=== PATIENT | male | born 1960 | race African-American/Black ===

== ENCOUNTER → 2016-12-11 | Outpatient (CLI) | payer SELFPAY ==
[~2016-12-11] MED LIST: CIPRO PO; CITRATE OF MAG300 ML PO; COLACE PO; NO MEDICATIONS; NORCO 5/325 TAB1 TAB PO; PHENERGAN25 M1 PO
--- NOTE | ~2016-12-11 | MR113 ---
[facility] A Service of [facility] & [facility] RADIOLOGY TEXT RESULTS PATIENT: FRANCIA DIAZ [facility] 64 UNIT #: [id number] AGE: [address]: JEREMY Vora APRN SEX: M ORDER DR: [id number] [facility] [address] [place], [place] [address] [id number] O MR#: [id number] Acc #: [id number] NAME: FRANCIA DIAZ : 1960 SEX: M STUDY DATE/TIME: 12/11/2016 14:48 UNIT: [facility] ROOM: STUDY DESCRIPTION: MR Lumbar Wo Contrast Attending Physician: Jeremy Marshall Aprn Referring Physician: Jeremy Marshall Aprn Ordering Physician: Jeremy Marshall Aprn [facility] This report is preliminary unless electronic signature is present. EXAM Lumbar spine MRI without HISTORY Chronic low back pain from the war 1993. No history of cancer or surgery. COMMENT MRI of the lumbar spine performed without contrast using routine 1.5T imaging technique. Plain film comparison is from 2012. Sagittal alignment is normal. Bone marrow signal intensity is normal. Conus medullaris terminates at L1 and is normal. Intervertebral disc hydration is age-appropriate. Minimal loss of disc height at L5-S1. At L1-2, no significant abnormality. At L2-3, mild bilateral facet hypertrophy. No canal or foraminal impingement. L3-4, mild facet hypertrophy. No canal or foraminal impingement. L4-5, minor concentric disc bulge mild facet degenerative change bilaterally. Mild ligamentum flavum thickening. No canal stenosis. Mild inferior foraminal narrowing left greater than right and mild mass effect on left greater than right lateral recess. L5-S1, mild left side facet degenerative change. No canal stenosis. There is a small posterior disc bulge and mild inferior foraminal narrowing on the right. IMPRESSION 1. Relatively mild lumbar degenerative changes are detailed above. No [facility] A Service of [facility] & [facility] RADIOLOGY TEXT RESULTS PATIENT: FRANCIA DIAZ LOCATION: [facility] : 64 UNIT #: [id number] AGE: [address]: JEREMY Vora, CAT[employer] OPERATOR GASOLINE SEX: M ORDER DR: lumbar canal stenosis. Please refer to the comment section above for description of mild foraminal narrowing. Dictated by... Marcia Nagy M.D. THIS IS AN ELECTRONICALLY VERIFIED REPORT Marcia Nagy M.D. at 12/12/2016 2:01 PM PEGGY/refugio TD: 12/12/2016 01:33 JOB #: [id number] [facility] REPORT COPY
== END | disposition home or self-care (01) ==
LOC: CMRI 13:35
DX: M54.5 Low back pain (principal); M47.816 Spondylosis without myelopathy or radiculopathy, lumbar region
CPT/HCPCS: 72148